=== PATIENT | male | born 1960 ===

== ENCOUNTER 2018-05-11 08:00 | Emergency (ER) | payer OTHER, MEDICAID, SELFPAY ==
[2018-05-11 08:10] VITALS: BP 142/83; PULSE 72; RESP 19; TEMP 36.8; O2SAT 99; BMI 34.9
--- NOTE | 2018-05-11 08:51 | ED.SKABFB ---
HPI - Skin/Abscess/Foreign Bdy General Chief complaint: Skin/Abscess/Foreign Body Stated complaint: states painful bump on head Time Seen by Provider: 05/11/18 08:46 Source: patient Mode of arrival: ambulatory Limitations: no limitations History of Present Illness HPI narrative: This is a 57-year-old male who comes to the emergency department for concern for a bump on his scalp. Patient states that he noticed it recently. He states he did have a fall in the last week. He states he also hit his head before that. Patient states the area feels a little tender. It has not been switch she. It has not been growing in size. He does not know exactly how long it has been present. He denies any vision changes, he denies any headaches, he denies any nausea or vomiting, denies any neck pain. Patient denies any other issues or concerns currently. Related Data Allergies Allergy/AdvReac Type Severity Reaction Status Date / Time No Known Drug Allergies Allergy Verified 05/11/18 09:10 Review of Systems Review of Systems ROS Unobtainable: All systems reviewed & are unremarkable except as noted in HPI and below Constitutional Denies headache(s) and Denies weakness Eyes Denies change in vision ENT Ears, Nose, Mouth, and Throat: Denies headache(s), Denies neck pain and Denies other (neck pain) Cardiovascular Denies chest pain, Denies syncope, Denies lightheadedness and Denies dyspnea Respiratory Denies dyspnea Gastrointestinal Gastrointestinal: Denies abdominal pain, Denies change in bowel habits, Denies nausea and Denies vomiting Musculoskeletal Denies back pain and Denies neck pain Integumentary/Breasts Denies rash and Reports other (lump on scalp.) Neurologic Denies syncope, Denies headache(s) and Denies weakness FOR[facility], [facility] Social [facility] details[facility] Smoking Status: Former smoker Social History details: staying at Prison Smoking Status: Former smoker Exam Narrative Exam Narrative: GEN: Patient appears in no apparent distress. HEAD: No evidence of trauma other than small area consistent with hematoma on the left parietal scalp, very mildly tender, no fluctuence, no erythema or cellulitis changes noted, no laceration/wound or abrasions, no raccoon/De [place] Torre sign. NECK: Nontender, painless range of motion, trachea midline Negative Nexus criteria, there is no midline tenderness, distracting injury, altered mental status, neuro deficit, recent EtOH. EYES: PERRLA, EOMI ENT: External inspection normal, trachea is midline, TM's are normal no hemotypanum, Nares are clear, no septal hematoma, no dental or oral injury, airway is normal and with normal occlusion, No bony tenderness RESP: Chest is nontender and has symmetric movement, no ecchymosis, breath sounds are normal no crackles, wheezes or rales CVS: Heart sounds are normal, no murmur noted, No JVD. ABG/GI: Nontender, soft, normal bowel sounds, no distention, no organomegaly, pelvic rock is [negative/positive] GENIT, RECTAL: Normal external inspection, normal rectal tone, [prostate is in normal position or no vaginal bleeding] NEURO: Oriented AOx3, neuro is grossly intact, sensation and motor is normal all 4 extremities moving, cranial nerves II through XII are intact, GCS is 15 PSYCH: Normal mood and affect SKIN: Intact, warm and dry, no crepitus and without decubitus BACK: No CVA tenderness, no vertebral tenderness, no step-off's, no crepitus EXT: Atraumatic, hips are nontender, no pedal edema, normal color and temperature, normal range of motion of extremities with normal tendon exam, 2+ pulses in all four extremities Initial Vital Signs Initial Vital Signs: Vital Signs Temperature 98.2 F 05/11/18 08:10 Pulse Rate 72 05/11/18 08:10 Respiratory Rate 19 05/11/18 08:10 Blood Pressure 142/83 H 05/11/18 08:10 Pulse Oximetry 99 05/11/18 08:10 Course Orders Ordered: Discontinued Medications Acetaminophen (Tylenol) 650 mg PO NOW ONE Stop: 05/11/18 08:51 Last Admin: 05/11/18 09:11 Dose: 650 mg Vital Signs - 8 hr 05/11/18 08:10 Temperature 98.2 F Pulse Rate 72 Respiratory Rate 19 Blood Pressure 142/83 H Pulse Oximetry 99 MDM - Skin/Abscess/Foreign Bdy MDM Narrative Medical decision making narrative: Discussed with patient able to palpate the area is consistent with a hematoma or ?goose egg likely from hitting his head recently, no signs of infection, malignancy or other causes at this time. Discharge Plan Departure Patient Disposition: Home Clinical Impression: Hematoma of left parietal scalp Qualifiers: Encounter type: initial encounter Qualified Code(s): S00.03XA - Contusion of scalp, initial encounter Discharge Date/Time: 05/11/18 09:13 Interventions: ED Discharge Assessment Last Done: 05/11/18 09:10 Instructions: DI for Hematoma (Bruise) Activity Restrictions/Additional Instructions: You may take tylenol and/or ibuprofen as needed for headache/tenderness of of the hematoma. You may take up to 600mg every 6 hours of ibuprofen or 1000 mg every 8 hr as needed. You do not need to perform any special care to the area. It will slowly resolve on its own. Return to the ER for fevers, if the area is growing in size, sudden severe headaches, persistent vomiting, vision changes, new weakness or inability to use your extremities or other new or concerning symptoms.
[2018-05-11] MEDS: ACETAMINOPHEN 325 MG TABLET 650 MG PO (09:11)
== END 2018-05-11 09:13 | disposition home or self-care (01) ==
PROVIDERS: Emergency Provider Emergency Medicine
DX: S00.03XA Contusion of scalp, initial encounter (principal); W19.XXXA Unspecified fall, initial encounter
CPT/HCPCS: 99282; 99283